=== PATIENT | female | born 1955 | race Caucasian/White ===

== ENCOUNTER 2023-06-26 11:48 | Emergency (ER) | payer OTHER, SELFPAY ==
[2023-06-26 11:56] VITALS: BP 154/82
--- NOTE | 2023-06-26 12:45 | ED.GENMED ---
History of Present Illness
General
Chief Complaint: Abdominal Pain
Source: patient
Exam Limitations: none
Time Seen by Provider: 06/26/23 12:36
Nursing documentation reviewed up to this point in time: agreed with
Travel History
Have you had any contact with someone who has COVID-19?: No
Do you have any symptoms of coronavirus? Fever > 100 degrees, chills, cough, shortness of breath, sore throat, loss of taste or smell, muscle aches, or headache?: No
History of Present Illness
History of Present Illness:
68-year-old female with a past medical history of hypertension who presents to the emergency department for evaluation of abdominal pain. Patient reports onset of symptoms 1 week ago and they have been constant since that time. She reports the
pain in the right lower quadrant radiates towards the right flank. No clear triggering or relieving factors noted. She reports that over the past 48 hours she has started to develop fever with a Tmax at home of 101.6 �F. Today went to her primary
doctor and was found to be tachycardic and given this constellation of symptoms she was sent to the emergency room to be assessed. She says that she has had urinary tract infections in the past but today's symptoms feel different; she denies any
dysuria, hematuria, change in urinary frequency. She has not had any dark or cloudy urine. She denies any nausea or vomiting. She has had some mild constipation with some leakage of liquid stool over the past week or so�she did give herself an
enema and passed a large soft stool and although BMs have improved she says her pain has not. She denies any other symptoms on review of systems; she denies any history of prior abdominal surgeries.
Past History
Past History
ED Past Medical History: None
ED Past Surgical History: None
Social History
Tobacco: Non-smoker
Review of Systems
Review of Systems
All Other Systems: ROS reviewed and negative except as documented in HPI and ROS
Constitutional: Reports fever and chills
EENT: Denies sore throat or runny nose
Respiratory: Denies cough or trouble breathing
Cardiac: Denies chest pain or palpitations
ABD/GI: Reports abdominal pain and constipated; Denies nausea, vomiting or diarrhea
: Denies dysuria, frequency, flank pain or bleeding
Musculoskeletal: Denies neck pain
Neurological: Denies dizzy, headache, weakness or numbness
Phy Exam
Physical Exam
Physical Exam:
General: Awake, alert, oriented x3; no acute distress
Head: Normocephalic, atraumatic
Eyes: Conjunctiva normal, sclera anicteric
Throat: Airway intact, handling secretions
Neck: Trachea midline, supple without meningismus
Lungs: Clear to auscultation bilaterally, no wheezing, rales, rhonchi
Heart: Tachycardia with regular rhythm, no murmurs, gallops, or rubs
Abd: Soft, non distended, mildly tender right lower quadrant and suprapubic region
Back: No CVA tenderness
Neuro: No gross deficits
Skin: no rash
Extremities: No edema in extremities, warm and well-perfused
Scores
Heart Failure Risk
Heart Failure Risk Score: Not Applicable
Heart Score for Chest Pain Patients
STEMI patient?: Not applicable
Withdrawal Assessment of Alcohol
Withdrawal Assessment Completed?: Not applicable
Course
Orders/Labs/Results
Orders:
Orders
06/26/23 12:44
CT Abd/Pel (IV only)-DH only Urgent
Comment:
Reason For Exam: right lower abd pain/flank pain; TTP RLQ
06/26/23 12:51
Electrocardiogram (*1) Urgent
Reason for Study: Tachycardia
EKG- Treatment ONCE
0.9% Sodium Chloride 1000 ml [Nss] 1,000 ml IV BOLUS
06/26/23 12:57
Complete Blood Count/With Diff Urgent
Comprehensive Metabolic Panel Urgent
06/26/23 14:13
Lactate Level [Lactic Acid] Urgent
Urinalysis Reflex To Culture Urgent
Date Specimen was Collected: 06/26/23
Time Specimen was Collected: 14:11
Blood Culture Q30M
CARMEN Source: Blood/Venous
Specimen Description:
06/26/23 14:15
Blood Culture Q30M
CARMEN Source: Blood/Venous
Specimen Description:
06/26/23 14:38
MetroNIDAZOLE [Flagyl] 500 mg PO NOW STA
06/26/23 14:39
Ciprofloxacin HCl [Cipro] 500 mg PO ONCE ONE
Abnormal Lab Results
06/26/23
12:57
WBC 12.2 H 10^3/uL
(4.8-10.8)
Abs Immat Gran (auto) 0.1 H 10^3/uL
(0-0.05)
Absolute Neuts (auto) 9.2 H 10^3/uL
(1.4-6.5)
Absolute Monos (auto) 0.9 H 10^3/uL
(0.1-0.6)
Neutrophils % 75.4 H %
(42.2-75.2)
Lymphocytes % 14.8 L %
(20.5-51.1)
Creatinine 0.5 L mg/dL
(0.6-1.0)
06/26/23 12:57
06/26/23 12:57
Vital Signs
Initial and Last Documented VS:
Initial Vital Signs
Temp Pulse Resp BP
37.2 C 130 18 154/82
06/26/23 11:56 06/26/23 11:56 06/26/23 11:56 06/26/23 11:56
Last Documented Vital Signs
Temp Pulse Resp BP Pulse Ox
37.2 C 100 20 123/68 100
06/26/23 11:56 06/26/23 14:17 06/26/23 14:17 06/26/23 14:17 06/26/23 14:17
MDM/Problems Addressed
Differential Diagnosis Includes:
Appendicitis, diverticulitis, nephrolithiasis, UTI, Constipation
MDM/Problems Addressed:
68-year-old female presents for evaluation of right lower quadrant abdominal pain rating to the right flank for the past week now associated with fever over the past 48 hours. She arrives to us tachycardic but afebrile here, blood pressure normal,
rest of vitals normal. Physical exam as above. Plan to place an IV check labs including a CBC and a CMP; will send a urinalysis. Will check CT of the abdomen pelvis. Check an EKG given tachycardia. Provide some IV fluids. Monitor closely
reassess after the above.
Initial labs reviewed: CBC shows leukocytosis to 12.2. CMP no clinically significant abnormalities. With tachycardia and leukocytosis, concern for potential intra-abdominal infection patient has multiple SIRS criteria will add on lactate and blood
cultures. Continue to monitor.
CT the abdomen pelvis shows acute uncomplicated diverticulitis in the sigmoid colon. Appendix unremarkable. Vital signs normalized with fluids she has no tachycardia only marginal leukocytosis and uncomplicated diverticulitis with very mild pain
and tenderness. I think she is a reasonable candidate for discharge on oral antibiotics�she feels comfortable this plan. Spoke about low fiber diet, outpatient follow-up with PCP and GI. Spoke about return precautions. All questions answered.
Acute Exacerbation and/or Progression of Chronic Illness:
Acutely hypertensive
*Radiology
Radiology exam reviewed: radiology read reviewed
*Pulse Oximetry
Patient hypoxic: no
*EKG
Interpreted by ED Provider?: Yes
Comparison EKG: changes noted (Tachycardia)
Heart Rate: 102
Rate: tachycardiac
Rhythm: sinus and sinus tachycardia
[place]: normal axis
Interval: normal interval
QRS Pattern: normal QRS
Ischemia: no ischemia
*Critical Care Note
Total Time (30-74mins, 75-104mins- exclusive of procedures): Not Applicable
Data Reviewed
Source: patient and records
ED Attending Note
-
Portions of this chart may have been created with voice recognition software.� Occasional wrong word or��sound alike� substitutions may have occurred due to the inherent limitations of voice recognition software.
Discharge Plan
Departure
Patient Disposition: Home (Routine Discharge)
Date of Disposition: 06/26/23
Time of Disposition: 14:51
Patient with high blood pressure during this ER visit?: Yes
Discharge Problem:
Acute diverticulitis
Instructions: Diverticulitis (DC)
Prescriptions:
New
ciprofloxacin HCl 500 mg tablet
500 mg PO BID Qty: 14 0RF
metronidazole 500 mg tablet
500 mg PO TID Qty: 21 0RF
No Action
oxybutynin chloride 10 MG tablet extended release 24hr
10 mg PO DAILY
lorazepam 0.5 MG tablet
0.5 mg PO HSPRN PRN (Reason: sleep)
Referrals:
Adlee Gorman MD [Active] - Call in 1-3 days for appt (GI doctor to schedule colonoscopy when symptoms improved)
Leigh Ann Jamison DO [Family Provider] - Follow up in 5-7 days
Activity Restrictions/Additional Instructions:
Thank you for visiting the Emergency Department at [facility].
1. Please schedule a follow up appointment as directed. Call first thing tomorrow morning to make an appointment.
2. If indicated, please take your medications as instructed and indicated on discharge paperwork.
3. If any of your symptoms do not improve, or persist, or become more severe within 6-12 hours, please return to the emergency department for further care.
4. Please return to the emergency department if you develop a headache, neck pain/stiffness, fever greater than 100.4F, chest pain, shortness of breath, persistent nausea, vomiting, slurred speech, difficulty walking, numbness/tingling, weakness,
signs of infection or any other symptoms that are worrisome to you.
Please call [phone] if you have any questions.
Interventions
Interventions:
*Risk Screen - Suicide Last Done: 06/26/23 13:00
*General Assessment Last Done: 06/26/23 12:59
*Neglect/Abuse Screening Last Done: 06/26/23 13:00
*ED COVID-19 Vaccine History Last Done: 06/26/23 12:59
AA-Opcue[facility]-Rghuwpfmdd Assessment Last Done: 06/26/23 13:01
[2023-06-26 12:59] VITALS: BMI 24.2
[2023-06-26] MEDS: NSS 1000 IV (13:05)
[2023-06-26 13:10] LABS: % Basophils 0.5 % (0-2); % Eosinophils 1.6 % (0-6); % Immature Granulocytes 0.4 % (0-0.5); % Lymphocytes 14.8 % (20.5-51.1); % Monocytes 7.3 % (1.7-9.3); % Neutrophils 75.4 % (42.2-75.2); Absolute Basophils 0.1 10^3/uL (0-0.2); Absolute Eosinophils 0.2 10^3/uL (0-0.7); Absolute Immature Granulocytes 0.1 10^3/uL (0-0.05); Absolute Lymphocytes 1.8 10^3/uL (1.2-3.4); Absolute Monocytes 0.9 10^3/uL (0.1-0.6); Absolute Neutrophils 9.2 10^3/uL (1.4-6.5); Hematocrit 38.9 % (37.0-47.0); Mean Corpuscular Hgb 29.5 pg (27.0-31.0); Mean Corpuscular Volume 81.9 fL (81.0-99.0); Mean Platelet Volume 8.8 fL (7.4-10.4); Nucleated Red Blood Cells % 0 %; Platelet Count 237 10^3/uL (130-400); Red Blood Cell Count 4.75 10^6/uL (4.20-5.40); Red Cell Dist. Width 13.1 % (11.5-14.5); White Blood Cell Count 12.2 10^3/uL (4.8-10.8)
[2023-06-26 13:25] LABS: ALT (SGPT) 22 U/L (0-35); AST (SGOT) 34 U/L (14-36); Albumin 4.5 g/dl (3.5-5.0); Alkaline Phosphatase 53 U/L (38-126); Blood Urea Nitrogen 12 mg/dl (7-17); Calcium 9.5 mg/dl (8.4-10.2); Carbon Dioxide 27 mmol/L (22-30); Chloride 103 mmol/L (98-107); Estimated Creatinine Clearance 70 ml/min; Glucose 91 mg/dl (70-99); Potassium 3.8 mmol/L (3.5-5.1); Sodium 135 mmol/L (135-145); Total Bilirubin 1.3 mg/dl (0.2-1.3); Total Protein 6.9 g/dl (6.3-8.2); eGFR > 60.00
[2023-06-26 14:17] VITALS: BP 123/68
[2023-06-26 14:49] LABS: Lactic Acid 0.7 mmol/L (0.7-2.0)
[2023-06-26 15:05] LABS: Urine Albumin Negative (Neg - Trace); Urine Bilirubin Negative (Negative); Urine Character Clear (Clear); Urine Color Yellow; Urine Glucose Negative (Negative); Urine Ketone Negative (Negative); Urine Leukocyte Negative (Negative); Urine Nitrite Negative (Negative); Urine Occult Blood Negative (Negative); Urine Specific Gravity 1.005 (<1.030); Urine Urobilinogen Negative (Neg - 1+)
[2023-06-26] MEDS: FLAGYL 500 MG PO (15:09)
[2023-06-26] MEDS: CIPRO 500 MG PO (15:09)
[2023-06-26 15:22] VITALS: BP 120/72
== END 2023-06-26 15:25 | disposition home or self-care (01) ==
LOC: EMR 11:48
PROVIDERS: EMERGENCY PHYSICIAN Emergency Medicine; FAMILY PHYSICIAN Student in an Organized Health Care Education/Training Program
DX: R10.31 Right lower quadrant pain (principal); I10 Essential (primary) hypertension; K59.00 Constipation, unspecified; Z87.440 Personal history of urinary (tract) infections
CPT/HCPCS: 99284; 96360; 74177; 80053; 81003; 83605; 85025; 87040; 93005; Q9967

== ENCOUNTER → 2023-09-05 06:24 | Day surgery (SDC) | payer OTHER, SELFPAY | LOC: GI 06:24 | PROVIDERS: ATTENDING PHYSICIAN Specialist; FAMILY PHYSICIAN Student in an Organized Health Care Education/Training Program | DX: Z12.11 Encounter for screening for malignant neoplasm of colon (principal); D12.2 Benign neoplasm of ascending colon; K57.30 Diverticulosis of large intestine without perforation or abscess without bleeding; Z86.010 Personal history of colon polyps; Z87.19 Personal history of other diseases of the digestive system | CPT/HCPCS: 45380; 88305 ==

== ENCOUNTER → 2024-03-21 11:57 | Outpatient (REF) | payer OTHER, SELFPAY | LOC: RAD 11:57 | PROVIDERS: ATTENDING PHYSICIAN Family Medicine | DX: M54.6 Pain in thoracic spine (principal); M54.2 Cervicalgia | CPT/HCPCS: 72050; 72072 ==

== ENCOUNTER → 2024-04-10 11:45 | Outpatient (REF) | payer OTHER, SELFPAY | LOC: WDC 11:45 | PROVIDERS: ATTENDING PHYSICIAN Family Medicine | DX: Z12.31 Encounter for screening mammogram for malignant neoplasm of breast (principal); M81.0 Age-related osteoporosis without current pathological fracture | CPT/HCPCS: 77063; 77067 ==

== ENCOUNTER → 2025-04-13 12:02 | Outpatient (REF) | payer MEDICARE, OTHER, SELFPAY | LOC: WDC 12:02 | PROVIDERS: ATTENDING PHYSICIAN Family Medicine | DX: Z12.31 Encounter for screening mammogram for malignant neoplasm of breast (principal) | CPT/HCPCS: 77063; 77067 ==